=== PATIENT | male | born 1985 | race Asian ===

== ENCOUNTER 2016-07-03 06:55 | Outpatient (CLI) | payer BC ==
[2016-07-03 07:56] LABS: BASOPHILS % (AUTO) 0.3 % (0.0-2.0); DIFF TOTAL % 100 %; EOSINOPHILS # (AUTO) 0.1 /CMM (0.0-0.7); EOSINOPHILS % (AUTO) 1.3 % (0.0-6.0); HEMATOCRIT 44 % (39-51); HEMOGLOBIN 14.2 g/dL (13.5-17.5); LYMPHOCYTES # (AUTO) 1.5 /CMM (0.8-4.8); LYMPHOCYTES % (AUTO) 29.5 % (20.0-44.0); MEAN CORPUSCULAR HEMOGLOBIN 30 PG (26.0-33.0); MEAN CORPUSCULAR HGB CONC 32 g/dl (31.0-36.0); MEAN CORPUSCULAR VOLUME 92 fL (80-96); MONOCYTES # (AUTO) 0.4 /CMM (0.1-1.30); MONOCYTES % (AUTO) 8.3 % (2.0-12.0); NEUTROPHILS # (AUTO) 3.1 /CMM (1.8-8.9); NEUTROPHILS % (AUTO) 60.6 % (43.0-81.0); PLATELET COUNT (AUTO) 205 /CMM (150-450); RED BLOOD CELL COUNT(AUTO) 4.76 MIL/uL (4.5-6.0); WHITE BLOOD COUNT (AUTO) 5.1 K/uL (4.3-11.0)
[2016-07-03 08:21] LABS: ALBUMIN 3.9 g/dL (3.4-5.0); BILIRUBIN,TOTAL 0.4 mg/dL (0.2-1.0); CALCIUM, SERUM 8.6 mg/dL (8.5-10.1); CREATININE 1.1 mg/dL (0.6-1.3); POTASSIUM 4.5 mmol/L (3.5-5.1); TOTAL PROTEIN, SERUM 7.9 g/dL (6.4-8.2)
[2016-07-03 08:31] LABS: THYROID STIMULATING HORMONE 1.281 uIU/mL (0.358-3.74)
== END 2016-07-03 23:59 | disposition home or self-care (01) ==
LOC: LAB 06:55
PROVIDERS: ATTEND Family Medicine
DX: Z13.220 Encounter for screening for lipoid disorders (principal); E55.9 Vitamin D deficiency, unspecified
CPT/HCPCS: 36415; 80053-TC; 80061-TC; 82306; 84439-TC; 84443-TC; 85025-TC

== ENCOUNTER 2016-08-07 08:58 | Outpatient (CLI) | payer BC ==
[2016-08-07 10:46] LABS: ALBUMIN 4.1 g/dL (3.4-5.0); BILIRUBIN,TOTAL 0.3 mg/dL (0.2-1.0); CALCIUM, SERUM 8.7 mg/dL (8.5-10.1); CREATININE 1.1 mg/dL (0.6-1.3); POTASSIUM 4.4 mmol/L (3.5-5.1)
[2016-08-07 10:48] LABS: APPEARANCE,URINE CLEAR (CLEAR); BILIRUBIN,URINE NEGATIVE (NEGATIVE); BLOOD, URINE NEGATIVE Ery/uL (NEGATIVE); COLOR,URINE YELLOW (YELLOW); KETONES,URINE TRACE (NEGATIVE); LEUKOCYTE ESTERASE ,URINE NEGATIVE (NEGATIVE); NITRITE, URINE NEGATIVE (NEGATIVE); PROTEIN,URINE NEGATIVE (NEGATIVE); UGLUCOSE NEGATIVE (NEGATIVE); UROBILINOGEN,URINE 0.2 EU/dL (0.2)
[2016-08-07 10:58] LABS: TOTAL PROTEIN, SERUM 7.8 g/dL (6.4-8.2)
[2016-08-07 11:11] LABS: ADD URINE CULTURE NO; BACTERIA,URINE None seen /HPF (None Seen); RBC,URINE NONE SEEN /HPF (0-2); SQUAMOUS EPITHELIAL CELL,UR Few /HPF (None Seen); WBC,URINE 0-2 /HPF (0-3)
[2016-08-08 09:43] LABS: HEPATITIS A AB, TOTAL Negative (Negative); HEPATITIS B SURFACE AB Reactive (.); HEPATITIS C VIRUS AB <0.1 s/co ratio (0.0-0.9)
== END 2016-08-07 23:59 | disposition home or self-care (01) ==
LOC: US 08:58
PROVIDERS: ATTEND Family Medicine
DX: Z00.01 Encounter for general adult medical examination with abnormal findings (principal); R94.5 Abnormal results of liver function studies; N50.89 Other specified disorders of the male genital organs
CPT/HCPCS: 36415; 76700-TC; 76870-TC; 80053-TC; 81000-TC; 86706; 86709-TC; 86803; 87340

== ENCOUNTER 2017-06-02 09:24 | Emergency (ER) | payer BC, OTHER ==
[~2017-06-02] VITALS: Ht 180.3 cm; Wt 85.7 kg
[2017-06-02 09:27] VITALS: BP 138/79
== END 2017-06-02 10:48 | disposition home or self-care (01) ==
LOC: ER 09:26
DX: S61.031A Puncture wound without foreign body of right thumb without damage to nail, initial encounter (principal); W46.0XXA Contact with hypodermic needle, initial encounter; Y93.89 Activity, other specified; Y92.89 Other specified places as the place of occurrence of the external cause; Y99.0 Civilian activity done for income or pay
CPT/HCPCS: 36415; 86706; 86803; 99284; A4606; Z7610

== ENCOUNTER 2018-09-12 14:05 | Outpatient (CLI) | payer BC ==
[2018-09-12 14:44] LABS: BASOPHILS % (AUTO) 0.4 % (0.0-2.0); EOSINOPHILS % (AUTO) 0.9 % (0.0-6.0); HEMATOCRIT 42 % (39-51); HEMOGLOBIN 14.1 g/dL (13.5-17.5); LYMPHOCYTES # (AUTO) 1.6 /CMM (0.8-4.8); LYMPHOCYTES % (AUTO) 26.1 % (20.0-44.0); MEAN CORPUSCULAR HGB CONC 33 g/dl (31.0-36.0); MEAN CORPUSCULAR VOLUME 92 fL (80-96); MONOCYTES # (AUTO) 0.3 /CMM (0.1-1.30); MONOCYTES % (AUTO) 5.5 % (2.0-12.0); NEUTROPHILS # (AUTO) 4.1 /CMM (1.8-8.9); NEUTROPHILS % (AUTO) 67.1 % (43.0-81.0); PLATELET COUNT (AUTO) 203 /CMM (150-450); WHITE BLOOD COUNT (AUTO) 6.1 K/uL (4.3-11.0)
[2018-09-12 14:48] LABS: APPEARANCE,URINE CLEAR (CLEAR); BILIRUBIN,URINE NEGATIVE (NEGATIVE); BLOOD, URINE NEGATIVE Ery/uL (NEGATIVE); COLOR,URINE YELLOW (YELLOW); KETONES,URINE NEGATIVE (NEGATIVE); LEUKOCYTE ESTERASE ,URINE NEGATIVE (NEGATIVE); NITRITE, URINE NEGATIVE (NEGATIVE); PROTEIN,URINE NEGATIVE (NEGATIVE); UGLUCOSE NEGATIVE (NEGATIVE); UROBILINOGEN,URINE 0.2 EU/dL (0.2)
[2018-09-12 16:13] LABS: ALBUMIN 3.9 g/dL (3.4-5.0); BILIRUBIN,TOTAL 0.3 mg/dL (0.2-1.0); CALCIUM, SERUM 8.7 mg/dL (8.5-10.1); CREATININE 1.2 mg/dL (0.6-1.3); POTASSIUM 4.5 mmol/L (3.5-5.1); TOTAL PROTEIN, SERUM 7.8 g/dL (6.4-8.2)
[2018-09-12 16:23] LABS: THYROID STIMULATING HORMONE 2.081 uIU/mL (0.358-3.74)
[2018-09-13 14:11] LABS: FOLIC ACID 12.5 ng/mL (>3.0)
== END 2018-09-12 23:59 | disposition home or self-care (01) ==
LOC: LAB 14:05
PROVIDERS: ATTEND Legal Medicine
DX: Z00.00 Encounter for general adult medical examination without abnormal findings (principal)
CPT/HCPCS: 36415; 80053-TC; 81000-TC; 82306; 82626; 82728-TC; 83540-TC; 84402; 84403; 84439-TC; 84443-TC; 85025-TC

== ENCOUNTER 2019-06-17 10:24 | Emergency (ER) | payer BC, OTHER ==
[~2019-06-17] VITALS: Ht 180.3 cm; Wt 93.4 kg
[2019-06-17 10:39] VITALS: BP 132/94
[2019-06-17] MEDS ORDERED: RALTEGRAVIR POTASSIUM 400 MG TABLET PO ONE ×2 (11:00→13:30)
[2019-06-17] MEDS ORDERED: EMTRICITABINE/TENOFOVIR 1 TAB PO ONE ×2 (11:00→13:30)
[2019-06-17] MEDS ORDERED: EMTRICITABINE 200 MG CAPSULE PO ONE (12:00)
[2019-06-17] MEDS ORDERED: TENOFOVIR DISOPROXIL FUMARATE 300 MG TABLET PO ONE (12:00)
--- NOTE | 2019-06-17 12:09 | NUR ---
Patient discharged to home in stable condition. Written and verbal after care instructions given. Patient verbalizes understanding of instruction.
[2019-06-18] MEDS ORDERED: EMTRICITABINE 200 MG CAPSULE PO ONE (14:00)
[2019-06-18] MEDS ORDERED: TENOFOVIR DISOPROXIL FUMARATE 300 MG TABLET PO ONE (14:00)
== END 2019-06-17 12:09 | disposition home or self-care (01) ==
LOC: ER 10:25
DX: T14.8XXA Other injury of unspecified body region, initial encounter (principal); W46.0XXA Contact with hypodermic needle, initial encounter; Y93.89 Activity, other specified; Y92.89 Other specified places as the place of occurrence of the external cause; Y99.0 Civilian activity done for income or pay
CPT/HCPCS: 36415; 86706; 86803; 87340

== ENCOUNTER 2020-01-01 15:17 | Outpatient (CLI) | payer BC, OTHER ==
[2020-01-01 16:23] LABS: APPEARANCE,URINE CLEAR (CLEAR); BILIRUBIN,URINE NEGATIVE (NEGATIVE); BLOOD, URINE NEGATIVE Ery/uL (NEGATIVE); COLOR,URINE YELLOW (YELLOW); KETONES,URINE NEGATIVE (NEGATIVE); LEUKOCYTE ESTERASE ,URINE NEGATIVE (NEGATIVE); NITRITE, URINE NEGATIVE (NEGATIVE); PH,URINE 5.5 (5.0-8.0); PROTEIN,URINE TRACE mg/dl (NEGATIVE); UGLUCOSE NEGATIVE (NEGATIVE); UROBILINOGEN,URINE 0.2 EU/dL (0.2)
[2020-01-01 16:24] LABS: BASOPHILS % (AUTO) 0.5 % (0.0-2.0); EOSINOPHILS % (AUTO) 1.4 % (0.0-6.0); HEMATOCRIT 44 % (39-51); HEMOGLOBIN 14.3 g/dL (13.5-17.5); LYMPHOCYTES % (AUTO) 36.6 % (20.0-44.0); MEAN CORPUSCULAR HGB CONC 32 g/dl (31.0-36.0); MEAN CORPUSCULAR VOLUME 91 fL (80-96); MONOCYTES # (AUTO) 0.2 /CMM (0.1-1.30); MONOCYTES % (AUTO) 7.7 % (2.0-12.0); NEUTROPHILS # (AUTO) 1.4 /CMM (1.8-8.9); NEUTROPHILS % (AUTO) 53.8 % (43.0-81.0); PLATELET COUNT (AUTO) 172 /CMM (150-450); RED BLOOD CELL COUNT(AUTO) 4.87 MIL/uL (4.5-6.0); WHITE BLOOD COUNT (AUTO) 2.7 K/uL (4.3-11.0)
[2020-01-01 16:41] LABS: BACTERIA,URINE Rare /HPF (None Seen); MUCUS,URINE Few /LPF (None Seen); RBC,URINE 0-2 /HPF (0-2); SQUAMOUS EPITHELIAL CELL,UR 0-2 /HPF (None Seen); WBC,URINE 0-2 /HPF (0-3)
[2020-01-01 16:42] LABS: ALBUMIN 3.6 g/dL (3.4-5.0); BILIRUBIN,TOTAL 0.3 mg/dL (0.2-1.0); CALCIUM, SERUM 7.7 mg/dL (8.5-10.1); CREATININE 1.2 mg/dL (0.6-1.3); POTASSIUM 3.3 mmol/L (3.5-5.1); TOTAL PROTEIN, SERUM 7.8 g/dL (6.4-8.2)
[2020-01-01 16:51] LABS: THYROID STIMULATING HORMONE 1.164 uIU/mL (0.358-3.74)
[2020-01-01 17:18] LABS: BAND % (MANUAL) 6 % (0.0-5.0); LYMPHOCYTES % (MANUAL) 36 % (16-48); MONOCYTES % (MANUAL) 3 % (0-11.0); NEUTROPHILS % (MANUAL) 55 (42-76)
[2020-01-02 03:08] LABS: *MUMPS AB (IGG) 96.8 AU/mL (Immune >10.9); RUBELLA ANTIBODIES, IGG 2.59 index (Immune >0.99)
== END 2020-01-01 23:59 | disposition home or self-care (01) ==
LOC: LAB 15:17
PROVIDERS: ATTEND Legal Medicine
DX: Z00.00 Encounter for general adult medical examination without abnormal findings (principal)
CPT/HCPCS: 36415; 80053-TC; 80061-TC; 80305; 81000-TC; 82306; 82626; 84402; 84403; 84439-TC; 84443-TC; 85025-TC; 86480; 86706; 86735; 86762; 86765; 86787; 87340

== ENCOUNTER 2020-01-19 14:11 | Outpatient (CLI) | payer BC ==
[2020-01-19 14:50] LABS: BASOPHILS % (AUTO) 0.4 % (0.0-2.0); EOSINOPHILS % (AUTO) 0.7 % (0.0-6.0); HEMATOCRIT 41 % (39-51); HEMOGLOBIN 13.3 g/dL (13.5-17.5); LYMPHOCYTES % (AUTO) 36.2 % (20.0-44.0); MEAN CORPUSCULAR HGB CONC 32 g/dl (31.0-36.0); MEAN CORPUSCULAR VOLUME 90 fL (80-96); MONOCYTES # (AUTO) 0.3 /CMM (0.1-1.30); MONOCYTES % (AUTO) 5.6 % (2.0-12.0); NEUTROPHILS # (AUTO) 3.2 /CMM (1.8-8.9); NEUTROPHILS % (AUTO) 57.1 % (43.0-81.0); PLATELET COUNT (AUTO) 194 /CMM (150-450); RED BLOOD CELL COUNT(AUTO) 4.54 MIL/uL (4.5-6.0); WHITE BLOOD COUNT (AUTO) 5.5 K/uL (4.3-11.0)
== END 2020-01-19 23:59 | disposition home or self-care (01) ==
LOC: LAB 14:11
PROVIDERS: ATTEND Legal Medicine
DX: D64.9 Anemia, unspecified (principal)
CPT/HCPCS: 36415; 85025-TC

== ENCOUNTER 2021-03-17 10:08 | Outpatient (CLI) | payer BC ==
[2021-03-17 10:58] LABS: BASOPHILS % (AUTO) 0.6 % (0.0-2.0); EOSINOPHILS % (AUTO) 0.9 % (0.0-6.0); HEMATOCRIT 44 % (39-51); HEMOGLOBIN 14.6 g/dL (13.5-17.5); LYMPHOCYTES # (AUTO) 1.8 K/uL (0.8-4.8); LYMPHOCYTES % (AUTO) 29.8 % (20.0-44.0); MEAN CORPUSCULAR HGB CONC 34 g/dl (31.0-36.0); MEAN CORPUSCULAR VOLUME 92 fL (80-96); MONOCYTES # (AUTO) 0.3 K/uL (0.1-1.30); MONOCYTES % (AUTO) 5.6 % (2.0-12.0); NEUTROPHILS # (AUTO) 3.8 K/uL (1.8-8.9); NEUTROPHILS % (AUTO) 63.1 % (43.0-81.0); PLATELET COUNT (AUTO) 215 K/uL (150-450); RED BLOOD CELL COUNT(AUTO) 4.74 MIL/uL (4.5-6.0)
[2021-03-17 11:13] LABS: ALBUMIN 3.8 g/dL (3.4-5.0); BILIRUBIN,TOTAL 0.5 mg/dL (0.2-1.0); CALCIUM, SERUM 8.5 mg/dL (8.5-10.1); CREATININE 1.1 mg/dL (0.6-1.3); POTASSIUM 4.1 mmol/L (3.5-5.1); TOTAL PROTEIN, SERUM 7.9 g/dL (6.4-8.2)
[2021-03-17 11:26] LABS: THYROID STIMULATING HORMONE 1.107 uIU/mL (0.358-3.74); URIC ACID 5.4 mg/dL (2.6-7.2)
[2021-03-17 11:38] LABS: BILIRUBIN,URINE NEGATIVE (NEGATIVE); COLOR,URINE YELLOW (YELLOW); LEUKOCYTE ESTERASE ,URINE NEGATIVE (NEGATIVE); NITRITE, URINE NEGATIVE (NEGATIVE); PH,URINE 7.5 (5.0-8.0); PROTEIN,URINE NEGATIVE (NEGATIVE); UGLUCOSE NEGATIVE (NEGATIVE); UROBILINOGEN,URINE 0.2 EU/dL (0.2)
== END 2021-03-17 23:59 | disposition home or self-care (01) ==
LOC: LAB 10:08
PROVIDERS: ATTEND Legal Medicine
DX: I10 Essential (primary) hypertension (principal); E11.9 Type 2 diabetes mellitus without complications; E55.9 Vitamin D deficiency, unspecified; D64.9 Anemia, unspecified; E78.5 Hyperlipidemia, unspecified; Z00.00 Encounter for general adult medical examination without abnormal findings
CPT/HCPCS: 36415; 80053-TC; 80061-TC; 82306; 84402; 84403; 84439-TC; 84443-TC; 84550-TC; 85025-TC

== ENCOUNTER 2022-06-02 12:57 | Outpatient (CLI) | payer BC ==
[2022-06-02 13:55] LABS: BASOPHILS % (AUTO) 0.4 % (0.0-2.0); EOSINOPHILS % (AUTO) 0.5 % (0.0-6.0); HEMATOCRIT 47 % (39-51); LYMPHOCYTES # (AUTO) 1.2 K/uL (0.8-4.8); LYMPHOCYTES % (AUTO) 18.3 % (20.0-44.0); MEAN CORPUSCULAR HGB CONC 32 g/dl (31.0-36.0); MEAN CORPUSCULAR VOLUME 94 fL (80-96); MONOCYTES # (AUTO) 0.4 K/uL (0.1-1.30); MONOCYTES % (AUTO) 5.6 % (2.0-12.0); NEUTROPHILS # (AUTO) 4.9 K/uL (1.8-8.9); NEUTROPHILS % (AUTO) 75.2 % (43.0-81.0); PLATELET COUNT (AUTO) 223 K/uL (150-450); RED BLOOD CELL COUNT(AUTO) 5.03 MIL/uL (4.5-6.0); WHITE BLOOD COUNT (AUTO) 6.5 K/uL (4.3-11.0)
[2022-06-02 14:40] LABS: BILIRUBIN,URINE NEGATIVE (NEGATIVE); COLOR,URINE YELLOW (YELLOW); LEUKOCYTE ESTERASE ,URINE NEGATIVE (NEGATIVE); NITRITE, URINE NEGATIVE (NEGATIVE); PROTEIN,URINE NEGATIVE (NEGATIVE); UGLUCOSE NEGATIVE (NEGATIVE); UROBILINOGEN,URINE 0.2 EU/dL (0.2)
[2022-06-02 14:46] LABS: THYROID STIMULATING HORMONE 0.777 uIU/mL (0.358-3.74)
[2022-06-02 14:47] LABS: ALBUMIN 3.7 g/dL (3.4-5.0); BILIRUBIN,TOTAL 0.4 mg/dL (0.2-1.0); CALCIUM, SERUM 8.9 mg/dL (8.5-10.1); CREATININE 1.1 mg/dL (0.6-1.3); POTASSIUM 4.6 mmol/L (3.5-5.1); TOTAL PROTEIN, SERUM 7.8 g/dL (6.4-8.2)
== END 2022-06-02 23:59 | disposition home or self-care (01) ==
LOC: LAB 12:57
PROVIDERS: ATTEND Legal Medicine
DX: Z00.00 Encounter for general adult medical examination without abnormal findings (principal); E29.1 Testicular hypofunction; I10 Essential (primary) hypertension; E55.9 Vitamin D deficiency, unspecified; E03.9 Hypothyroidism, unspecified; D64.9 Anemia, unspecified
CPT/HCPCS: 36415; 80053-TC; 80061-TC; 82306; 82607-TC; 82728-TC; 83540-TC; 84402; 84403; 84443-TC; 85025-TC